=== PATIENT | female | born 2000 | race Caucasian/White ===

== ENCOUNTER 2019-04-19 20:59 | Emergency (ER) | payer OTHER ==
[2019-04-19] MEDS ORDERED: ACETAMINOPHEN 500 MG TABLET (FP) PO ONE (21:12)
--- NOTE | 2019-04-19 21:12 | PDOC ---
Rapid Medical Evaluation Time Seen by Provider: 04/19/19 21:10 Medical Evaluation: 04/19/19 21:10 HPI: 32 weeks gravid with pelvic cramping and migraine PE: No gross deficits ORDERS:To L&D for FHM; Tylenol Discharge Disposition - Diagnosis Headache, Threatened premature labor - Referrals - Patient Instructions - Post Discharge Activity
[2019-04-19 21:17] VITALS: BMI 28.1
[2019-04-19] MEDS ORDERED: ACETAMINOPHEN 325 MG TABLET (FP) ONE (22:23)
--- NOTE | 2019-04-19 22:38 | PDOC ---
History of Present Illness - General Chief Complaint: Pain Stated Complaint: MIGRAINE W/ CRAMPING Time Seen by Provider: 04/19/19 21:10 Past History - Past Medical History Allergies/Adverse Reactions: Allergies Allergy/AdvReac Type Severity Reaction Status Date / Time No Known Allergies Allergy Verified 04/19/19 21:14 COPD: No Other medical history: Pt denies - Suicide/Smoking/Psychosocial Hx Smoking History: Former smoker Have you smoked in the past 12 months: Yes If you are a former smoker, when did you quit?: 32 wks ago Information on smoking cessation initiated: No Hx Alcohol Use: No Drug/Substance Use Hx: Yes (Marijuana) *Physical Exam - Vital Signs Last Vital Signs Temp Pulse Resp BP Pulse Ox 98.7 F 96 H 20 135/57 L 98 04/19/19 21:14 04/19/19 21:14 04/19/19 21:14 04/19/19 21:14 04/19/19 21:14 ED Treatment Course - Medications Given in the ED: ED Medications Discontinued Medications Generic Name Dose Route Start Last Admin Trade Name Shama PRN Reason Stop Dose Admin Acetaminophen 1,000 mg 04/19/19 21:12 04/19/19 22:26 Tylenol - PO 04/19/19 21:13 1,000 mg ONCE ONE Administration *DC/Admit/Observation/Transfer Diagnosis at time of Disposition: Headache, Threatened premature labor - Referrals Referrals: Keaton Lugo MD [Primary Care Provider] - - Patient Instructions - Post Discharge Activity
[2019-04-19 23:58] VITALS: BP 113/67; PULSE 87; TEMP 98.3
== END 2019-04-20 01:50 | disposition home or self-care (01) ==
LOC: JER 20:59
DX: O26.893 Other specified pregnancy related conditions, third trimester (principal); O47.00 False labor before 37 completed weeks of gestation, unspecified trimester; R51 Headache; Z3A.32 32 weeks gestation of pregnancy
CPT/HCPCS: 99281-25

== ENCOUNTER 2019-06-02 14:51 | Inpatient (IN) | payer OTHER ==
[2019-06-02] MEDS ORDERED: AMPICILLIN - 2 GM in SODIUM CHLORIDE 100 ML IVPB ONE (16:00)
[2019-06-02] MEDS ORDERED: ELECTROLYTE-148 SOLN 1,000 ML IV SCH (16:00)
[2019-06-02] MEDS ORDERED: AMPICILLIN SODIUM 2 GM VIAL ONE (16:12)
[2019-06-02 16:54] VITALS: BMI 29.3
--- NOTE | 2019-06-02 16:57 | HP ---
Past Medical History - Admission History of Present Illness: 19 yo @ 38 2/7 wks, EDC 06/14/2019 complicated by: 1. Teen , age 19 at delivery 2. GBS positive - no PCN allergy Patient presents with chief complaint of contractions, which began at 0900. She reports movement, denies leakage of fluid or vagina bleeding. History Source: Patient Limitations to Obtaining History: No Limitations - Past Medical History Cardiovascular: No: HTN Pulmonary: No: Asthma ...: 1 ...Para: 0 ...Term: 0 ...: 0 ...Spon : 0 ...Induced : 0 ...Multiple Gestation: 0 ...LMP: 09/10/18 ... Weeks Gestation by Dates: 38.2 ...EDC by Dates: 06/14/19 ...EDC by Sono: 06/16/19 Heme/Onc: No: Anemia - Past Surgical History Past Surgical History: Yes: None Hx Myomectomy: No Hx Transabdominal Cerclage: No - Smoking History Smoking history: Never smoked Have you smoked in the past 12 months: No If you are a former smoker, when did you quit?: 32 wks ago - Alcohol/Substance Use Hx Alcohol Use: No History of Substance Use: reports: None - Social History History of Recent Travel: No Home Medications - Allergies Allergies/Adverse Reactions: Allergies Allergy/AdvReac Type Severity Reaction Status Date / Time No Known Allergies Allergy Verified 06/02/19 16:03 - Home Medications Home Medications: Ambulatory Orders Vitamins (Sjr) - 1 tab PO DAILY 05/30/19 Family Medical History Family History: Denies Review of Systems - Review of Systems Constitutional: reports: No Symptoms Cardiovascular: reports: No Symptoms Respiratory: reports: No Symptoms Musculoskeletal: reports: No Symptoms Integumentary: reports: No Symptoms Neurological: reports: No Symptoms Hematology/Lymphatic: reports: No Symptoms Psychiatric: reports: No Symptoms Physical Exam - Maternity Vital Signs: Vital Signs Temperature 97.7 F 06/02/19 16:00 Pulse Rate 98 H 06/02/19 16:00 Respiratory Rate 18 06/02/19 16:00 Blood Pressure 132/75 06/02/19 16:00 O2 Sat by Pulse Oximetry (%) Constitutional: Yes: Well Nourished, No Distress, Calm Cardiovascular: Yes: Regular Rate and Rhythm Lungs: Clear to auscultation - Abdominal Exam/OB Number of Fetuses: Single Presentation: Vertex Regularity: Regular Intensity: Mod/Strong Heart Rate (range): 140 Category: I Accelerations: Non-Uniform Decelerations: None - Vaginal Exam/OB Vaginal Bleediing: No Dilatation (cm): 4 Effacement (%): 70 Amniotic Membrane Status: Intact Station: -3 - Physical Exam Psychiatric: Yes: Alert, Oriented - Labs Lab Results: PNL: O Positive, antibody negative; RPR NR; HIV neg; HBs Ag negative; Rubella Immune; Varicella Immune; CF/SMA/Fragile X neg; GCT WNL; GBS positive Assessment/Plan 19 yo @ 38+ wks active labor 1. Admit to L&D 2. Routine labs collected and sent 3. Will start ampicillin for GBS prophylaxis 4. Will offer pain medication upon patient request 5. Category I FHT 6. Will proceed with expectant management
[2019-06-02 17:19] LABS: HYALINE CASTS 11 /lpf (0-8); URINE APPEARANCE CLEAR; URINE BILIRUBIN NEGATIVE (NEGATIVE); URINE COLOR YELLOW; URINE GLUCOSE (UA) NEGATIVE (NEGATIVE); URINE KETONE NEGATIVE (NEGATIVE); URINE LEUK ESTERASE 1+ (NEGATIVE); URINE NITRITE NEGATIVE (NEGATIVE); URINE PROTEIN TRACE (NEGATIVE); URINE RBC 2 /hpf (0-4); URINE WBC 7 /hpf (0-5)
--- NOTE | 2019-06-02 18:20 | PN ---
Ante-Partal Exam - Subjective Subjective: Patient reports mild pain with contractions. Vital Signs: Vital Signs Temperature 97.7 F 06/02/19 16:00 Pulse Rate 91 H 06/02/19 17:00 Respiratory Rate 20 06/02/19 17:00 Blood Pressure 119/69 06/02/19 17:00 O2 Sat by Pulse Oximetry (%) Bleeding: No Headache: No Visual changes: No Right upper quadrant pain: No - Contractions Contractions: Yes Regularity: Regular Intensity: Moderate - Exam during Labor Heart Rate: 150 Variability: Moderate Category: I Monitor Accelerations: Present Monitor Decelerations: None Exam: Vaginal Dilatation (cm): 5 Effacement (%): 80 Amniotic Membrane Status: Ruptured Amniotic Fluid: Clear Presentation: Vertex Station: -2 - Intrapartum Hemorrhage Risk Medium Risk Factors: None High Risk Factors: None Risk Score: 0 Risk Level: Low Risk - Assessment/Plan Assessment/Plan: 19 yo active labor 1. Arom performed, clear fluid 2. GBS pos, s/p ampicillin x 1 3. category I FHT 4. Will offer pain medication upon request 5. Will proceed with expectant management
[2019-06-02 19:21] LABS: BASO % 0.2 % (0-2.0); EOS % 0.4 % (0-4.5); HEMATOCRIT 30.7 % (32.4-45.2); HEMOGLOBIN 9.7 GM/dL (10.7-15.3); LYMPH % 15.8 % (8-40); MCH 25.4 pg (25.7-33.7); MCHC 31.5 g/dl (32.0-36.0); MEAN CELL VOLUME 80.6 fl (80-96); MEAN PLT VOLUME 10.5 fl (7.5-11.1); MONO % 8.7 % (3.8-10.2); NEUT % 74.9 % (42.8-82.8); PLATELET COUNT 330 K/MM3 (134-434); RBC 3.81 M/mm3 (3.60-5.2); RDW 14.3 % (11.6-15.6); WHITE BLOOD COUNT 9.2 K/mm3 (4.0-10.0)
[2019-06-02 19:29] LABS: INR 0.93 (0.83-1.09)
[2019-06-02 19:32] LABS: ACTIVATED PTT 23.7 SECONDS (25.2-36.5); CREATININE 0.6 mg/dL (0.55-1.3); POTASSIUM 4.2 mmol/L (3.5-5.1)
[2019-06-02] MEDS ORDERED: AMPICILLIN SODIUM 1 GM VIAL ONE ×2 (19:55→23:59)
[2019-06-02] MEDS: AMPICILLIN - 1 GM in SODIUM CHLORIDE 100 ML IVPB SCH (20:00)
[2019-06-02] MEDS: ELECTROLYTE-148 SOLN 1,000 ML IV SCH (20:01)
--- NOTE | 2019-06-02 23:06 | PN ---
Ante-Partal Exam - Subjective Subjective: Patient reports pain with contractions Breathing through well Vital Signs: Vital Signs Temperature 98.5 F 06/02/19 22:43 Pulse Rate 78 06/02/19 22:43 Respiratory Rate 20 06/02/19 22:43 Blood Pressure 116/69 06/02/19 22:43 O2 Sat by Pulse Oximetry (%) Bleeding: No Headache: No Visual changes: No Right upper quadrant pain: No - Contractions Contractions: Yes Regularity: Regular Intensity: Mod/Strong - Exam during Labor Heart Rate: 140 Variability: Moderate Category: II Monitor Accelerations: Present Monitor Decelerations: Variable Exam: Vaginal Dilatation (cm): 5 Effacement (%): 70 Amniotic Membrane Status: Ruptured Presentation: Vertex Station: -2 - Intrapartum Hemorrhage Risk Medium Risk Factors: None High Risk Factors: None Risk Score: 0 Risk Level: Low Risk - Assessment/Plan Assessment/Plan: 19 yo unchanged vaginal exam, s/p AROM 1. Reviewed unchanged vaginal exam Discussed augmentation with pitocin Risks / benefits discussed, patient agrees to augmentation 2. GBS positive, on ampicillin 3. Will offer pain medication upon patient request 4. Will proceed with expectant management
[2019-06-02] MEDS ORDERED: FENTANYL/BUPIVACAINE/NS/PF - PCEA - 50 ML DISP.SYRIN EP ONE (23:12)
[2019-06-02] MEDS ORDERED: BUPIVACAINE HCL/PF 2.5 MG/ML - 30 ML VIAL IJ ONE (23:14)
[2019-06-02] MEDS ORDERED: LIDO 2%/EPI 1:200000 PRESRVFRE (20 ML SDVIAL) ONE (23:14)
[2019-06-02] MEDS ORDERED: NALOXONE HCL 0.4 MG/ML VIAL IVPUSH PRN (23:35)
[2019-06-02] MEDS: FENTANYL/BUPIVACAINE/NS/PF - PCEA - 50 ML DISP.SYRIN EP SCH (23:45)
[2019-06-02] MEDS ORDERED: OXYTOCIN 30 UNITS in 0.9% NS 30 UNIT/500 ML INFUS.BAG IVPB ONE (23:53)
[2019-06-03] MEDS ORDERED: OXYTOCIN 30 UNITS in 0.9% NS 30 UNIT/500 ML INFUS.BAG IVPB SCH
--- NOTE | 2019-06-03 00:49 | PN ---
Ante-Partal Exam - Subjective Subjective: Patient comfortable s/p epidural Vital Signs: Vital Signs Temperature 97.8 F 06/03/19 00:00 Pulse Rate 82 06/02/19 23:00 Respiratory Rate 20 06/02/19 23:00 Blood Pressure 132/84 06/02/19 23:00 O2 Sat by Pulse Oximetry (%) Bleeding: No Headache: No Visual changes: No Right upper quadrant pain: No - Contractions Contractions: Yes Regularity: Regular Intensity: Unaware Monitor Mode: External - Exam during Labor Heart Rate: 145 Variability: Moderate Category: I Monitor Accelerations: Present Monitor Decelerations: None Exam: Vaginal Dilatation (cm): 6 Effacement (%): 80 Amniotic Fluid: Clear Presentation: Vertex Station: -1 - Intrapartum Hemorrhage Risk Medium Risk Factors: None High Risk Factors: None Risk Score: 0 Risk Level: Low Risk - Assessment/Plan Assessment/Plan: 19 yo @ 38+ wks, active labor 1. Cervical change noted, Pitocin @ 2 Will continue pitocin per protocol 2. GBS positive, on ampicillin 3. Category I FHT 4. Pain well controlled with epidural 5. Will proceed with expectant management
[2019-06-03] MEDS ORDERED: FENTANYL/BUPIVACAINE/NS/PF - PCEA - 50 ML DISP.SYRIN EP ONE ×2 (03:32→07:35)
[2019-06-03] MEDS ORDERED: AMPICILLIN SODIUM 1 GM VIAL ONE ×2 (03:52→07:57)
[2019-06-03] MEDS: AMPICILLIN - 1 GM in SODIUM CHLORIDE 100 ML IVPB SCH ×3 (04:00→07:59)
[2019-06-03] MEDS ORDERED: OXYTOCIN 20 UNITS in 0.9% NS 20 UNIT/1,000 ML INFUS.BAG IV ONE ×2 (04:18→13:10)
[2019-06-03] MEDS ORDERED: BUPIVACAINE HCL/PF 2.5 MG/ML - 30 ML VIAL IJ ONE (06:44)
--- NOTE | 2019-06-03 06:50 | PN ---
Ante-Partal Exam - Subjective Subjective: Patient reports back pain with contractions Vital Signs: Vital Signs Temperature 99.2 F 06/03/19 06:00 Pulse Rate 94 H 06/03/19 05:15 Respiratory Rate 20 06/03/19 05:15 Blood Pressure 138/84 06/03/19 05:15 O2 Sat by Pulse Oximetry (%) 99 06/03/19 05:15 Bleeding: No Headache: No Visual changes: No Right upper quadrant pain: No - Contractions Contractions: Yes - Exam during Labor Heart Rate: 150 Variability: Moderate Category: I Monitor Accelerations: Present Monitor Decelerations: None Exam: Vaginal Dilatation (cm): 9 Effacement (%): 100 Amniotic Membrane Status: Ruptured Presentation: Vertex Station: 0 - Intrapartum Hemorrhage Risk Medium Risk Factors: None High Risk Factors: None Risk Score: 0 Risk Level: Low Risk - Assessment/Plan Assessment/Plan: 19 yo active labor 1. Good cervical change, pitocin at 8 2. GBS positive on ampicillin 3. Category I FHT 4. Currently 9 cm, inadequate pain control at this time Will have anesthesia give additional pain relief Will continue to monitor
[2019-06-03] MEDS: OXYTOCIN 20 UNITS in 0.9% NS 20 UNIT/1,000 ML INFUS.BAG IV SCH (10:30)
[2019-06-03] MEDS ORDERED: METHYLERGONOVINE MALEATE 0.2 MG/1 ML AMP IM PRN (10:33)
[2019-06-03] MEDS ORDERED: BENZOCAINE 28 GM HEMORRHOIDAL OINTMENT TP PRN (10:33)
[2019-06-03] MEDS ORDERED: BENZOCAINE 20% 57 GM BOTTLE TP PRN (10:33)
[2019-06-03] MEDS ORDERED: WITCH HAZEL 50% (TUCKS) 40 PAD/JAR PAD TP PRN (10:33)
[2019-06-03] MEDS ORDERED: BISACODYL 10 MG SUPP.RECT RC PRN (10:33)
--- NOTE | 2019-06-03 10:39 | PN ---
Delivery - Delivery Vaginal Delivery: No Problems, Shoulder/Difficult Type of Anesthesia: Epidural Episiotomy/Laceration: Midline, 1st degree EBL (cc): 200 Delivery, Single - Stages of Labor Date 1st Stage Initiatied: 06/02/19 Time 1st Stage Initiated: 23:30 Date 2nd Stage Initiated: 06/03/19 Time 2nd Stage Initiated: 09:45 Date of Delivery: 06/03/19 Time of Delivery: 10:17 Date Placenta Delivered: 06/03/19 Time Placenta Delivered: 10:25 Placenta: Yes: Spontaneous - Condition of Infant Gender: Female Position: OA Total Hours ROM (Hrs/Mins): 16 hours 5 minutes - 1 Minute Total Score: 8 5 Minutes Total Score: 8 - Feeding Plan Initial Plan: Exclusive throughout hospitalization Remarks - Remarks Remarks: Patient progressed to fully dilated and at 1017 via delivered a viable female in direct OA position, APGARs 8,8. Weight and length unknown at this time. Head delivered spontaneously, nuchal cord noted and reduced. Shoulders noted to be difficult, campa screw maneuver applied. Shoulders delivered in transverse position and body delivered without difficulty. with spontaneous cry and placed on mother's abdomen. Nose and mouth was bulb suctioned. Cord was clamped and cut. Perineum and vagina examined, a first degree laceration was noted and repaired in the usual fashion. Placenta was delivered spontaneously and intact. 20 units of pitocin in 1 L IVF was given. All counts correct x 2. Mother and stable in LDR. EBL 200cc.
[2019-06-03] MEDS ORDERED: AMPICILLIN - 1 GM in SODIUM CHLORIDE 100 ML IVPB ONE (12:00)
[2019-06-03] MEDS: ACETAMINOPHEN 325 MG TABLET (FP) PO PRN ×2 (13:47→17:36)
[2019-06-03] MEDS: IBUPROFEN 600 MG TABLET (FP) PO PRN ×2 (13:48→17:36)
[2019-06-03] MEDS: FERROUS SO4 325 MG TABLET (FP) PO SCH ×2 (13:51→17:36)
[2019-06-04] MEDS: ACETAMINOPHEN 325 MG TABLET (FP) PO PRN ×2 (02:12→12:33)
[2019-06-04] MEDS: IBUPROFEN 600 MG TABLET (FP) PO PRN ×2 (02:12→12:33)
[2019-06-04 07:24] LABS: BASO % 0.2 % (0-2.0); EOS % 0.8 % (0-4.5); HEMATOCRIT 24.2 % (32.4-45.2); HEMOGLOBIN 7.9 GM/dL (10.7-15.3); LYMPH % 19.7 % (8-40); MCHC 32.7 g/dl (32.0-36.0); MEAN CELL VOLUME 79.4 fl (80-96); MONO % 8.2 % (3.8-10.2); NEUT % 71.1 % (42.8-82.8); PLATELET COUNT 267 K/MM3 (134-434); RBC 3.04 M/mm3 (3.60-5.2); RDW 14.5 % (11.6-15.6); WHITE BLOOD COUNT 13.3 K/mm3 (4.0-10.0)
--- NOTE | 2019-06-04 08:05 | PN ---
Progress Note (short form) - Note Progress Note: ppd 1 s/p , doing well, no dizziness , no excess vaginal bleeding abdomen soft, no distension, uterus firm, non tender lochia mild no calf tenderness impression anemia , asymptomatic , advised iron, vit cbc in am Last Vital Signs Temp Pulse Resp BP Pulse Ox 98.4 F 94 H 20 125/74 100 06/04/19 06:00 06/04/19 06:00 06/04/19 06:00 06/04/19 06:00 06/03/19 13:18 CBC, BMP 06/04/19 06:47 06/02/19 18:35
[2019-06-04] MEDS: FERROUS SO4 325 MG TABLET (FP) PO SCH ×3 (10:08→18:43)
[2019-06-04] MEDS: PRENATAL VITAMINS W/ FOLIC ACID TABLET (FP) PO SCH (10:08)
[2019-06-04] MEDS ORDERED: SENNOSIDES/DOCUSATE COMBO (SENNA PLUS) TABLET (UD) PO PRN (22:00)
[2019-06-05] MEDS: FENTANYL/BUPIVACAINE/NS/PF - PCEA - 50 ML DISP.SYRIN EP SCH (01:26)
[2019-06-05] MEDS: ELECTROLYTE-148 SOLN 1,000 ML IV SCH (01:27)
[2019-06-05] MEDS: OXYTOCIN 20 UNITS in 0.9% NS 20 UNIT/1,000 ML INFUS.BAG IV SCH (01:27)
[2019-06-05 07:36] LABS: BASO % 0.3 % (0-2.0); EOS % 1.3 % (0-4.5); HEMATOCRIT 26.4 % (32.4-45.2); HEMOGLOBIN 8.6 GM/dL (10.7-15.3); LYMPH % 17.9 % (8-40); MCHC 32.4 g/dl (32.0-36.0); MEAN CELL VOLUME 80.2 fl (80-96); MEAN PLT VOLUME 10.2 fl (7.5-11.1); NEUT % 74.5 % (42.8-82.8); PLATELET COUNT 333 K/MM3 (134-434); RBC 3.29 M/mm3 (3.60-5.2); RDW 14.5 % (11.6-15.6); WHITE BLOOD COUNT 11.6 K/mm3 (4.0-10.0)
--- NOTE | 2019-06-05 08:23 | PN ---
Post Progress Note - Subjective Subjective: Patient without acute complaints. Reports tolerating oral intake without nausea or vomiting. Ambulating without dizziness. Denies fevers or chills. Pain well controlled with oral pain medication. with supplementation. Passing flatus. Post Day: 2 Type of Delivery: Vital Signs: Vital Signs Temperature 98.2 F 06/04/19 22:00 Pulse Rate 86 06/04/19 22:00 Respiratory Rate 18 06/04/19 22:00 Blood Pressure 130/75 06/04/19 22:00 O2 Sat by Pulse Oximetry (%) 100 06/03/19 13:18 Breast Exam: Yes: Soft Uterus: Yes: Fundus Firm, Fundus below umbilicus Abdomen/GI: Yes: Abdomen soft, Passing flatus, Tolerating PO. No: Abdominal Distention, Tender Lochia: Yes: Rubra Lochia, amount: Moderate Extremities: Yes: Calves non-tender, Edema (trace) Activity: Ambulating - Labs Labs: CBC WBC 13.3 K/mm3 (4.0-10.0) H 06/04/19 06:47 RBC 3.04 M/mm3 (3.60-5.2) L 06/04/19 06:47 Hgb 7.9 GM/dL (10.7-15.3) L 06/04/19 06:47 Hct 24.2 % (32.4-45.2) L D 06/04/19 06:47 MCV 79.4 fl (80-96) L 06/04/19 06:47 MCH 26.0 pg (25.7-33.7) 06/04/19 06:47 MCHC 32.7 g/dl (32.0-36.0) 06/04/19 06:47 RDW 14.5 % (11.6-15.6) 06/04/19 06:47 Plt Count 267 K/MM3 (134-434) 06/04/19 06:47 MPV 10.0 fl (7.5-11.1) 06/04/19 06:47 Absolute Neuts (auto) 9.5 K/mm3 (1.5-8.0) H 06/04/19 06:47 Neutrophils % 71.1 % (42.8-82.8) 06/04/19 06:47 Lymphocytes % 19.7 % (8-40) D 06/04/19 06:47 Monocytes % 8.2 % (3.8-10.2) 06/04/19 06:47 Eosinophils % 0.8 % (0-4.5) D 06/04/19 06:47 Basophils % 0.2 % (0-2.0) 06/04/19 06:47 Nucleated RBC % 0 % (0-0) 06/04/19 06:47 Assessment/Plan 19 yo PPD # 2 s/p , afebrile, vital signs stable, mild asymptomatic anemia 1. Patient stable for discharge home today. 2. Patient encouraged to contact MD for: - Severe pain not controlled by oral pain medication - Fevers or chills - Nausea or vomiting, intolerance of oral intake 3. Patient to follow up in office in 4-6 weeks for visit
[2019-06-05] MEDS: FERROUS SO4 325 MG TABLET (FP) PO SCH ×2 (09:10→11:25)
[2019-06-05] MEDS: PRENATAL VITAMINS W/ FOLIC ACID TABLET (FP) PO SCH (09:36)
[2019-06-05 10:36] VITALS: BP 119/74; PULSE 84; TEMP 97.9
[2019-06-05 12:04] LABS: ANISOCYTOSIS 2+; MACROCYTOSIS 1+; PLATELET ESTIMATE NORMAL
--- NOTE | 2019-07-25 08:18 | DS ---
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 Vital Signs: Vital Signs Temperature 97.9 F 06/05/19 10:00 Pulse Rate 84 06/05/19 10:00 Respiratory Rate 20 06/05/19 10:00 Blood Pressure 119/74 06/05/19 10:00 O2 Sat by Pulse Oximetry (%) 100 06/03/19 13:18 Labs: CBC, BMP 06/05/19 06:23 06/02/19 18:35 Delivery - Delivery Vaginal Delivery: No Problems, Shoulder/Difficult Type of Anesthesia: Epidural Episiotomy/Laceration: Midline, 1st degree EBL (cc): 200 Delivery, Single - Stages of Labor Date 1st Stage Initiatied: 06/02/19 Time 1st Stage Initiated: 23:30 Date 2nd Stage Initiated: 06/03/19 Time 2nd Stage Initiated: 09:45 Date of Delivery: 06/03/19 Time of Delivery: 10:17 Time Placenta Delivered: 10:25 Placenta: Yes: Spontaneous - Condition of Employee 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 PPD # 1 patient ambulated, voiding, passing gas, tolerating oral intake and with adequate pain control. She fulfilled all criteria for discharge PPD #2 Condition: Good - Instructions Diet, Activity, Other Instructions: Follow up in 4-6 weeks for visit Physical activity Resume your normal everyday activity as tolerated no heavy lifting or exercise until seen by your surgeon. You may walk unlimited anabella of and climb stairs. You may resume driving the car when you feel safe and comfortable behind the wheel. No sexual activity as instructed. Diet There are no dietary restrictions. Eat healthy, high-fiber foods. Drink 6 to 8 glasses of liquid each day. This will assist in keeping your bowels are regular. Pain management You may take Tylenol or acetaminophen or Ibuprofen (for example, Motrin, Advil etc.) for pain Call MD for any of the following: Severe pain not relieved by medication Fever of 101 or higher Excessive bleeding or drainage on dressing Inability to urinate Referrals: Keaton Lugo MD [Staff Physician] - Disposition: HOME - Home Medications Comprehensive Discharge Medication List: Ambulatory Orders Vitamins (Sjr) - 1 tab PO DAILY 05/30/19
== END 2019-06-05 11:40 | disposition home or self-care (01) | DRG 560 ==
LOC: JDEL 14:51 → JLDR 16:00 → J3W 06-03 13:30
PROVIDERS: ADMIT Obstetrics & Gynecology; ATTEND Obstetrics & Gynecology
PROC: 10E0XZZ Delivery of Products of Conception, External Approach (ICD-10-PCS; principal; 2019-06-03)
PROC: 0HQ9XZZ Repair Perineum Skin, External Approach (ICD-10-PCS; 2019-06-03)
DX: O99.824 Streptococcus B carrier state complicating childbirth (principal); O70.0 First degree perineal laceration during delivery; Z3A.38 38 weeks gestation of pregnancy; Z37.0 Single live birth
CPT/HCPCS: 36415; 36600; 59025; 59409; 80048; 81003; 82803; 85025; 85610; 85730; 86593; 86850; 86900; 86901